=== PATIENT | female | born 1935 | race Caucasian/White ===

== ENCOUNTER 2019-01-21 06:47 | Inpatient (IN) ==
--- NOTE | 2018-12-31 13:02 | PAT Medication Instructions ---
Medication Instructions Date of Service December 31, 2018 Home Medications C,E,zinc,copper [id number] [Ocuvite Adult 50 Plus] 1 cap PO QAM albuterol sulfate 1 puff INHALATION Q6H NEEDED amlodipine 5 mg PO BID apixaban [Eliquis] 5 mg PO BID atorvastatin 20 mg PO QAM bumetanide 1 mg PO BID carvedilol 25 mg PO BID duloxetine 30 mg PO HS empagliflozin [Jardiance] 10 mg PO QAM lisinopril 20 mg PO BID lorazepam 0.5 mg PO HS potassium chloride [Klor-Con M20] 40 meq PO BID ASK your prescriber and surgeon apixaban [Eliquis] 5 mg PO BID (needs to be 72 hours prior to surgery) STOP taking 2 weeks before surgery C,E,zinc,copper [id number] [Ocuvite Adult 50 Plus] 1 cap PO QAM DO NOT take the morning of surgery bumetanide 1 mg PO BID empagliflozin [Jardiance] 10 mg PO QAM lisinopril 20 mg PO BID potassium chloride [Klor-Con M20] 40 meq PO BID Take morning of surgery With a small sip of water, OTHERWISE NOTHING TO EAT OR DRINK AFTER MIDNIGHT: albuterol sulfate 1 puff INHALATION Q6H NEEDED (if needed; please bring to hospital) amlodipine 5 mg PO BID atorvastatin 20 mg PO QAM carvedilol 25 mg PO BID Take evening before surgery albuterol sulfate 1 puff INHALATION Q6H NEEDED (if needed) amlodipine 5 mg PO BID carvedilol 25 mg PO BID duloxetine 30 mg PO HS lisinopril 20 mg PO BID lorazepam 0.5 mg PO HS potassium chloride [Klor-Con M20] 40 meq PO BID Other Notes If you have any questions please call us at [phone] or [phone] or [phone] or [phone]
--- NOTE | 2018-12-31 15:03 | Anesthesiology Consultation ---
Date of Service December 31, 2018 Assessment & Plan (1) Encounter for pre-operative examination: - Seizure after anesthesia in 1974. Suspected to be due to succinylcholine. - No previous anesthesia records available. Chart Review Chart Review: Acceptable Risk for Surgery and Patient seen in Pre Admission Testing Consults Requested medical & cardiac (Dr. Hallman (12/27) & Dr. Fried (01/02) & Dr. Zimmer (01/09) ) Patient was seen by Dr. Ronquillo in pulmonology on 01/09/19 for preoperative evaluation. Per note from that visit, "Cleared for surgery from a pulmonary standpoint". Other than continuing nocturnal O2 and using Duonebs as needed, no recommendations were given. Patient was seen on 01/02/19 for a cardiac risk assessment for planned left TKR. Per note from this visit, "The patient is stable and at optimal cardiac status presently to proceed with the planned surgery. BP and HR are well controlled, denies c/o chest pain or dyspnea and ECG is satisfactory. She is anticoagulated with Eliquis and this may be held fr the procedure 48 hours prior, with surgery scheduled on 01/21/19. Her last dose of Eliquis should be 01/18/19. This should be resumed post operatively as soon as deemed appropriate by Dr. Loaiza, but this will be at the discretion of Dr. Loaiza. Recommend she receive her carvedilol perioperatively." Patient was seen by PCPs office on 12/27 to discuss all of patients comorbidities and review what follow up actions are being taken for each health problem. An addendum was added at the end, however, that states "Pt is medically stable for surgery." Teaching & Discussion Pre-Anesthesia Teaching/Discussion Notes: Instructed NPO after midnight before surgery, except medications with 15 cc of water. Medication instructions provided according to the PAT guidelines. History Surgery Operation Date: 01/21/19 09:15 Proposed Procedures p Left Total Knee Arthroplasty - Usama Loaiza DO Height/Weight Height: 5 ft 9.5 in Weight: 79.7 kg Allergies Allergy/AdvReac Type Severity Reaction Status Date / Time succinylcholine Allergy Severe Seizure Verified 12/30/18 10:40 [From Anectine] azithromycin AdvReac Intermediate SORE MOUTH Verified 12/30/18 11:02 [From Zithromax Z-Florin] doxycycline AdvReac Mild Mouth got Verified 12/31/18 14:49 sore Medications Home Medications Medication Instructions Recorded Confirmed Last Taken C,E,zinc,copper [id number] 1 cap PO QAM 12/30/18 12/30/18 Unknown [Ocuvite Adult 50 Plus] albuterol sulfate 1 puff INHALATION Q6H PRN 12/30/18 12/30/18 Unknown amlodipine 5 mg PO BID 12/30/18 12/30/18 Unknown apixaban [Eliquis] 5 mg PO BID 12/30/18 12/30/18 Unknown atorvastatin 20 mg PO QAM 12/30/18 12/30/18 Unknown bumetanide 1 mg PO BID 12/30/18 12/30/18 Unknown carvedilol 25 mg PO BID 12/30/18 12/30/18 Unknown duloxetine 30 mg PO HS 12/30/18 12/30/18 Unknown empagliflozin [Jardiance] 10 mg PO QAM 12/30/18 12/30/18 Unknown lisinopril 20 mg PO BID 12/30/18 12/30/18 Unknown lorazepam 0.5 mg PO HS 12/30/18 12/30/18 Unknown potassium chloride [Klor-Con M20] 40 meq PO BID 12/30/18 12/30/18 Unknown Past Medical History Medical History Anxiety Asthma controlled Atrial fibrillation Congestive heart failure Depression Diabetes mellitus, type 2 niddm Glaucoma History of anesthesia reaction allergy to anectine causing seizures in ~1974 at [facility]. Hypertension Left leg weakness R/T STROKE On anticoagulant therapy On home oxygen therapy 2lpm via n/c at night Peripheral neuropathy bilateral feet Pulmonary hypertension Stroke July 2017 treated at [facility] in [place] and [facility]. Left arm/Left leg weakness. Follows with PCP. Takes Eliquis daily. Exercise / Class Metabolic Activity III < 4 Walking/Shop/Light housework (Able to scoot self around in her wheelchair. Can walk short distances with walker. Denies CP. Does have some SOB with exertion. ) Past Family History Family History Father Family history of diabetes mellitus Daughter Family history of diabetes mellitus Past Surgical History Surgical History H/O eye surgery for a broken blood vessel in right eye History of appendectomy History of bilateral tubal ligation History of cardiac cath ~2014 at [facility]. No Stents. History of cataract surgery bilateral History of colonoscopy History of esophagogastroduodenoscopy (EGD) History of laparoscopy History of tonsillectomy and adenoidectomy Hx of lumpectomy LEFT S/P JANAE-BSO Past Anesthesia History No Family Hx of Anesthesia Complications Seizures after anesthesia. Suspected to be due to succinylcholine. History of PONV No Hx of PONV and No Hx of Motion Sickness Social History Smoking Status: Never smoker Do You Dip or Chew Tobacco: No Hx Alcohol Use: No Hx Substance Use: No substance use type: does not use Review of Systems Patient denies chest pain, shortness of breath, dyspnea on exertion, reflux, cough, palpitations. +WELLS when trying to walk, otherwise denies +Joint Pain (Knee, hip) +Wheezing (seems to be helped with nebulizer - bromocriptine) +palpitations (with a. fib) Physical Exam Vital Signs BP: 137/71 P: 69 R: 16 T: 97.4 SPO2: 96% on RA ENMT Mouth: + dentures (Full upper and lower dentures) and + edentulous Thyromental Distance: < 3.5 Finger Breadths (3) Mallampati Class: II Neck normal visual inspection; neck extension not limited Respiratory normal respiratory effort Auscultation: lungs clear to auscultation bilaterally Cardiovascular Rate/Rhythm: + abnormal rate and + abnormal rhythm Irregularly irregular heart rate/rhythm (known a. fib) Neurologic moves all extremities Psychiatric Orientation: alert and oriented x 3 Testing Laboratory Results 12/31/18 15:15 12/31/18 15:15 PT 11.5 Seconds (9.0-12.0) 12/31/18 15:15 INR 1.1 (0.9-1.1) 12/31/18 15:15 APTT 29.6 Seconds (21.0-31.0) 12/31/18 15:15 Hemoglobin A1c 6.2 % (4.5-5.6) H 12/31/18 15:15 Urine Color Yellow 12/31/18 15:15 Urine Appearance Clear (Clear) 12/31/18 15:15 Urine pH 6.0 (4.5-7.5) 12/31/18 15:15 Ur Specific [place] 1.025 (1.000-1.030) 12/31/18 15:15 Urine Protein Negative (Negative) 12/31/18 15:15 Urine Glucose (UA) 3+ (Negative) H 12/31/18 15:15 Urine Ketones Negative (Negative) 12/31/18 15:15 Urine Nitrite Negative (Negative) 12/31/18 15:15 Ur Leukocyte Esterase Negative (Negative) 12/31/18 15:15 Urine WBC (Auto) 0 /hpf (0-5) 12/31/18 15:15 Urine RBC (Auto) 0-4 /hpf (0-4) 12/31/18 15:15 U Hyaline Cast (Auto) 0 /lpf (0-5) 12/31/18 15:15 U Epithel Cells (Auto) 5-10 /lpf (0-5) H 12/31/18 15:15 Urine Bacteria (Auto) Negative (Negative) 12/31/18 15:15 Blood Type O Positive 12/31/18 15:15 Antibody Screen NEGATIVE 12/31/18 15:15 12/31/18 15:15 Urine Culture - Final Urine,Clean Catch Alpha strep. not enterococcus Electrocardiogram Date: 01/02/19 Findings: + AFIB @ (57) LAFB PRWP Chest X-Ray Date: 12/31/18 FINDINGS: Atherosclerosis of the aortic arch. Cardiac silhouette enlarged. Lungs are hyperinflated. Heterogeneity lung parenchyma. No focal opacity. Right costophrenic angle blunting possibly trace right pleural effusion or more likely right pleural thickening and/or scarring. No pneumothorax. Degenerative changes of the thoracic spine. Upper abdomen normal. IMPRESSION: 1. Cardiomegaly and emphysema. No convincing evidence of acute cardiopulmonary disease. Cardiac Catheterization Date: 10/31/16 FINDINGS: 1. Rhythm: Atrial fibrillation 2. Hemodynamics: RA V wave is 8, mean is 6. RV 57/-7 with RVEDP of 3, PA 57/19 with mean of 34. PCW V wave is 22, mean is 15. 3. Saturations: PA saturation 68%. Pulse Oximetry 95% 4. Flows: The cardiac output by the Cyrus method is 4.1 liters per minute. Cardiac index 2 liters per minute per m2. Pulmonary vascular resistance is elevated at 4.6 Wood units. IMPRESSION: Moderate pulmonary hypertension with elevated pulmonary vascular resistance consistent with pulmonary parenchymal and pulmonary vascular disease.
--- NOTE | 2018-12-31 15:53 | XRay Report ---
XR chest Pre-admission PA/Lat CLINICAL HISTORY: 83 years-old Female presenting with preoperative assessment, shortness of breath. TECHNIQUE: PA and lateral views of the chest were obtained. COMPARISON: None. FINDINGS: Atherosclerosis of the aortic arch. Cardiac silhouette enlarged. Lungs are hyperinflated. Heterogenei ty lung parenchyma. No focal opacity. Right costophrenic angle blunting possibly trace right pleural effusion or more likely right pleural thickening and/or scarring. No pneumothorax. Degenerative fernando es of the thoracic spine. Upper abdomen normal. IMPRESSION: 1. Cardiomegaly and emphysema. No convincing evidence of acute cardiopulmonary disease. Electronically signed by: Seb Kang M.D. 12/31/2018 3:52 PM
[2018-12-31 16:19] LABS: Basophils # (auto) 0.05 K/uL (0-0.2); Basophils % (auto) 0.8 %; Eosinophils % (auto) 3.2 %; Hematocrit (blood only) 40.7 % (37-47); Hemoglobin 13.3 g/dL (12.0-16.0); Immature Granulocytes # (auto) 0.01 K/uL (0.00-0.02); Immature Granulocytes % (auto) 0.2 %; Lymphocytes # (auto) 1.18 K/uL (1.2-3.4); Mean Corpuscular Hemoglobin 29.7 pg (25-34); Mean Corpuscular Hgb Conc 32.7 g/dL (32-36); Mean Corpuscular Volume 90.8 fL (80-100); Monocytes # (auto) 0.85 K/uL (0.11-0.59); Monocytes % (auto) 13.7 %; Neutrophils # (auto) 3.91 K/uL (1.4-6.5); Neutrophils % (auto) 63.1 %; Platelet Count 186 K/uL (130-400); RDW Coefficient of Variation 13.4 % (11.5-14.5); RDW Standard Deviation 44.1 fL (36.4-46.3); Red Blood Count 4.48 M/uL (4.2-5.4)
[2018-12-31 16:27] LABS: Albumin Level 3.9 gm/dl (3.4-5.0); Calcium 9.2 mg/dl (8.5-10.1); Creatinine Clr Calc Pharmacy 58.6 ml/min; Est GFR (African American) 80.1; Est GFR (Non-African American) 69.1; Potassium 4.1 mmol/L (3.5-5.1)
[2018-12-31 16:34] LABS: INR 1.1 (0.9-1.1); Partial Thromboplastin Ratio 1.1; Partial Thromboplastin Time 29.6 Seconds (21.0-31.0); Prothrombin Time 11.5 Seconds (9.0-12.0)
[2018-12-31 16:37] LABS: Appearance Urine Clear (Clear); Bacteria Urine Automated Negative (Negative); Bilirubin Urine Negative (Negative); Blood Urine Trace (Negative); Cast Urine Automated 0 /lpf (0-5); Color Urine Yellow; Glucose Urine UA 3+ (Negative); Ketones Urine Negative (Negative); Leukocyte Esterase Urine Negative (Negative); Nitrite Urine Negative (Negative); Protein Urine Negative (Negative); RBC Urine Automated 0-4 /hpf (0-4); Specific Gravity Urine 1.025 (1.000-1.030); Urobilinogen Urine Negative (Negative); WBC Urine Automated 0 /hpf (0-5)
[2019-01-01 05:20] LABS: Estimated Average Glucose 131 mg/dl; Hemoglobin A1C 6.2 % (4.5-5.6)
--- NOTE | 2019-01-20 19:35 | History & Physical Report ---
Date of Service January 20, 2019 Assessment & Plan (1) Degenerative joint disease of left knee: I have indicated the patient for left total knee replacement. The risks, benefits and complications of surgery were explained to the patient which include but not limited to infection, acute blood loss, DVT/PE, injury to nerves, vessels, bone, soft tissue, arthrofibrosis, chronic pain, failure of the prosthesis, knee dislocation, leg length discrepancy, need for additional surgery, cardiac and pulmonary events and . The patient wished to proceed with surgery and informed consent was obtained at this time. We will plan for restarting patients home Eliquis post-operatively for DVT prophylaxis. Upon discharge the patient will be discharged home with home health services. Appropriate clearances by PCP, pulm and cardiology were obtained. Patient asymptomatic for UTI. History of Present Illness Chief Complaint: Left knee pain/djd Primary Care Provider: Osmar Hallman The patient is a 83 year old female who presents with complaints of severe left knee pain and DJD. The patient has failed outpatient conservative treatments to this point which included topica NSAIDs, IA corticosteroid and SAWYER injection, bracing, PT and a home walking/exercise program. The patient's pain and limited function have progressed to the point where they severely hinder their activities of daily living and they no longer tolerate exercise programs. They are requesting to proceed with total knee replacement surgery. Allergies Allergy/AdvReac Type Severity Reaction Status Date / Time succinylcholine Allergy Severe Seizure Verified 01/21/19 07:13 [From Anectine] azithromycin AdvReac Intermediate SORE MOUTH Verified 01/21/19 07:13 [From Zithromax Z-Florin] doxycycline AdvReac Mild Mouth got Verified 01/21/19 07:13 sore Home Medications Home Medications Medication Instructions Recorded Confirmed Type C,E,zinc,copper [id number] 1 cap PO QAM 12/30/18 12/30/18 History [Ocuvite Adult 50 Plus] albuterol sulfate 1 puff INHALATION Q6H PRN 12/30/18 12/30/18 History amlodipine 5 mg PO BID 12/30/18 12/30/18 History apixaban [Eliquis] 5 mg PO BID 12/30/18 12/30/18 History atorvastatin 20 mg PO QAM 12/30/18 12/30/18 History bumetanide 1 mg PO BID 12/30/18 12/30/18 History carvedilol 25 mg PO BID 12/30/18 12/30/18 History duloxetine 30 mg PO HS 12/30/18 12/30/18 History empagliflozin [Jardiance] 10 mg PO QAM 12/30/18 12/30/18 History lisinopril 20 mg PO BID 12/30/18 12/30/18 History lorazepam 0.5 mg PO HS 12/30/18 12/30/18 History potassium chloride [Klor-Con M20] 40 meq PO BID 12/30/18 12/30/18 History Past Med/Surg History Medical History Anxiety Asthma controlled Atrial fibrillation Congestive heart failure Depression Diabetes mellitus, type 2 niddm Glaucoma Hypertension Left leg weakness R/T STROKE On anticoagulant therapy On home oxygen therapy 2lpm via n/c at night Peripheral neuropathy bilateral feet Pulmonary hypertension Stroke July 2017 treated at [facility] in [place] and [facility]. Left arm/Left leg weakness. Follows with PCP. Takes Eliquis daily. Surgical History H/O eye surgery for a broken blood vessel in right eye History of anesthesia reaction allergy to anectine causing seizures in ~1974 at [facility]. History of appendectomy History of bilateral tubal ligation History of cardiac cath ~2014 at [facility]. No Stents. History of cataract surgery bilateral History of colonoscopy History of esophagogastroduodenoscopy (EGD) History of laparoscopy History of tonsillectomy and adenoidectomy Hx of lumpectomy LEFT S/P JANAE-BSO Family History Father Family history of diabetes mellitus Daughter Family history of diabetes mellitus Social History Preferred Language: Bermudian Communication Ability: Effective Adjutant General Required: No Beliefs That Will Affect Care: None Current Living Situation: Spouse Other Information That Helps Us Care for You: No Feels Safe at Home: Yes Safety Concerns: Feels Safe At This Time Smoking Status: Never smoker Do You Dip or Chew Tobacco: No ; Second Hand Exposure: No ; Tobacco Cessation Education Requested by Patient: No Hx Alcohol Use: No Hx Substance Use: No Review of Systems Review of Systems: All systems reviewed & are unremarkable except as noted in HPI & below Constitutional: as per Subjective / HPI Physical Exam Physical Exam: RLE NVSI +EHL/FHL/TA/GS SILT grossly, +2 DP pulse, compartments soft NT, limited painful ROM, 0-115 degrees flexion, +crepitus. Constitutional: WD/WN, vitals as above Eyes: PERRL, conjunctivae normal, anicteric sclerae ENMT: external ear and nose normal, oropharynx normal Neck: trachea midline, no thyromegaly Respiratory: normal respiratory effort, lungs clear to auscultation Cardiovascular: RRR, no murmur, no edema Gastrointestinal (Abdomen): normal bowel sounds, soft, nontender, no hepatosplenomegaly Musculoskeletal: no cyanosis or clubbing, extremities motor strength 5/5 Skin: no rashes, warm and dry Neurologic: patellar DTR's 2+ bilat, sensation intact Psychiatric: A+Ox3, euthymic affect Lymphatic: no cervical or axillary lymphadenopathy Results & Data Laboratory Results Multiple views of the knee demonstrates severe tricompartmental DJD with complete loss of the medial and moderate loss patelofemoral joint space. +osteophytes, +sclerosis, +subchondral cysts.
[~2019-01-21 06:47] MED LIST: ACETAMINOPHEN 500 MG TAB PO SCH; BUPIVACAINE 0.5 % 5 MG/1 ML PF 10ML VIAL ONE; CEFAZOLIN 1000MG 1,000 MG/7.5 ML SYR IV SCH; CeleBREX 200 MG CAP PO SCH; FAMOTIDINE 20 MG TAB PO SCH; LR 15ML/HR IV SCH; LR 500ML BOLUS, THEN 15ML/HR IV SCH; METOCLOPRAMIDE HCL 10 MG TABLET PO SCH; ROPIVACAINE 0.5% 5 MG/ML 30 ML VIAL ONE; ROPIVACAINE 0.5% HCL/PF 150 MG, BUPIVACAINE 0.5% MPF 30 ML, EPINEPHrine 30MG/30ML (OR U... INFIL SCH; TRANEXAMIC ACID 1,000 MG **IV Intra-op IV SCH; TRANEXAMIC ACID 1,000 MG **IV Pre-op IV SCH; dexAMETHasone 4 MG TAB PO SCH
[2019-01-21] MEDS ORDERED: MIDAZOLAM HCL 1 MG/ML 2ML VIAL ONE (07:20)
[2019-01-21] MEDS ORDERED: fentaNYL citrate 100 MCG/2 ML VIAL ONE (07:20)
--- NOTE | 2019-01-21 07:24 | History & Physical Bridge Note ---
Date of Service January 21, 2019 History & Physical Bridge Note I have examined the patient, reviewed the History & Physical and in the interval since the performance of the History & Physical I have noted the following changes of clinical significance: no changes noted
[2019-01-21] MEDS ORDERED: ORTHO JOINT ANESTHETIC ONE (07:35)
[2019-01-21] MEDS ORDERED: BACITRACIN INJ 50,000 UNIT VIAL ONE (07:35)
[2019-01-21] MEDS ORDERED: ATROPINE SULFATE 0.1 MG/ML 10ML SYR IV PRN (08:42)
[2019-01-21] MEDS ORDERED: ONDANSETRON INJ 2 MG/ML 2 ML VIAL IV PRN ×2 (08:42→12:18)
[2019-01-21] MEDS ORDERED: fentaNYL citrate 100 MCG/2 ML VIAL IV PRN (08:42)
[2019-01-21] MEDS ORDERED: ePHEDrine sulfate 50 MG/ML AMP IV PRN (08:42)
[2019-01-21] MEDS ORDERED: LIDOCAINE HCL 2% 2 ML VIAL/AMP(20MG/ML) INFIL ONE (10:41)
[2019-01-21] MEDS ORDERED: PROPOFOL IV EMULSION 10 MG/ML 20 ML VIAL IV ONE (10:41)
--- NOTE | 2019-01-21 10:43 | Post Operative Brief Note ---
Immediate Post Op Note v1 Date of Surgery January 21, 2019 Pre & Post Diagnosis Operation Date: 01/21/19 09:15 Pre-Op Diagnosis: Left Knee Degenerative Joint Disease Post-Op Diagnosis: Left Knee Degenerative Joint Disease Procedure Operation Date: 01/21/19 09:15 Actual Procedures p Left Total Knee Arthroplasty(Left) - Usama Loaiza DO Surgeon Usama Loaiza DO Lubrication Equipment Servicer Tarik Rdz Estimated Blood Loss 100 Findings Consistent with Post-Op Diagnosis Fluids 1000 cc LR Specimens proximal tibia and distal femur bone cuts Drains Hemovac Drain (10fr dual) Anesthesia Type Spinal MAC Complications none Disposition Disposition: Recovery Room Overlapping Procedure I was present for: the critical portions of procedure. I was immediately available: during the entire case. Back up surgeon: was not required during procedure.
--- NOTE | 2019-01-21 10:55 | Operative Report ---
Post Operative Report Pre & Post Diagnosis Operation Date: 01/21/19 09:15 Pre-Op Diagnosis: Left Knee Degenerative Joint Disease Post-Op Diagnosis: Left Knee Degenerative Joint Disease Procedure Operation Date: 01/21/19 09:15 Actual Procedures p Left Total Knee Arthroplasty(Left) - Usama Loaiza DO Surgeon Usama Loaiza DO Breaker Machine Operator Tarik Rdz Estimated Blood Loss 100 Findings Consistent with Post-Op Diagnosis Specimens Proximal tibia and distal femur bone fragments Drains Hemovac drain x2 Anesthesia Type Spinal MAC Complications none Disposition Disposition: Recovery Room Indications The patient is a 83-year-old femur presents with long history of severe left knee tricompartmental DJD and failed outpatient conservative treatments including NSAIDs, bracing, injections and home walking/exercise program. The patient's symptoms have progressed to the point where it has been difficult to perform normal activities of daily living. I have indicated the patient for a left total knee arthroplasty, the risks and benefits and complications of the procedure include but are not limited to infection bleeding damage to bone, nerves, vessels, surrounding soft tissue, blood clots, loss of function, leg length discrepancy, dislocation, failure of the components, need for additional surgery and . The patient wished to proceed with surgery at this time and informed consent was obtained. Appropriate clearances were obtained. Description of Procedure COMPONENTS USED: Quin persona knee system: Femur size 8 standard, Tibia size F, 30 mm stem, tibial articulating surface 14 CPS, Patella 32 mm Following induction of spinal anesthesia, a tourniquet was applied to the proximal aspect of the thigh and the patient's left leg was prepped and draped in the usual sterile manner. A timeout was performed, patient identified and site joaquin confirmed. Appropriate pre-operative IV antibiotics were given. The limb was exsanguinated with an Esmarch bandage and tourniquet was inflated to 300 mmHg. A longitudinal midline incision was made over the anterior knee. Subcutaneous tissue was sharply dissected down to fascia. Electrocautery was used for hemostasis. Next a parapatellar arthrotomy was performed. Patella was everted and the knee was flexed. A Back retractor was used to expose the synovium above on the anterior aspect of the femur and removed down to bone. Next, the anterior fat pad was removed to aid in visualization. The medial face of the tibia was cleared of soft tissue first with a Bovie and a [place] elevator. This tissue was retracted posteriorly using a blunt Hohmann. Next, the extra-medullary tibial cutting guide was placed to the anterior aspect of the tibia. The tibia resection level was set taking 2mm from the defective tibial condyle. Resection depth was once again confirmed with lópez wing. The medial and lateral collateral ligament was protected with two Hohmann retrac tors. The tibia guide was removed and proximal tibial bone fragment removed utilizing straight osteotome, electrocautery and Lisa. Next, the distal femur intramedullary canal was accessed utilizing the step drill. The intramedullary distal femur cutting guide was placed into the canal and pinned into place. The distal femur was cut on the +0 5 degree setting. Next the cutting guide was removed and the femur was sized. Care was taken to ensure appropriate consumer credit counselor all rotation and 3 degree holes were drilled. A size 8 4-in-1 cutting block was placed on the distal end of the femur and secured into place with two short headed screws. Two bent Hohmann retractors were placed to protect the medial and lateral collateral ligaments. The oscillating saw was used to cut anterior, posterior, anterior chamfer and posterior chamfer. The four and one cutting block was removed and bone fragments excised. Laminar saw operator was placed laterally and the ACL and PCL were removed followed by the medial meniscus and posterior medial osteophytes. Aquamantys was utilized for any posterior medial bleeders and Orthomix injected into the posterior medial capsule. A laminar saw operator was then placed in the medial compartment and the lateral meniscus and posterior osteophytes were removed. Aquamantys was utilized for any posterior lateral bleeders and Orthomix injected into the posterior lateral capsule. Next, drop lety and spacer block were placed with the leg in flexion and extension to assess alignment and flexion/extension gaps. Next, the proximal tibia was assessed and two bent Hohmans were placed medial and lateral to aid in visualization. The appropriate tibia size and rotation was selected and a size F tibial plate was pinned into place with appropriate rotation. Preparation of the tibia was completed utilizing the matching tibial drill to accommodate stubby stem and broach. I then turned my attention back to the distal femur in a trial femoral component was impacted into place. Appropriate femoral width was assessed and selected. Next the femur PS box cut guide was placed and cut made with the reciprocal saw and the PS box provisional placed. A trial size 12 PS tibia articular tray was placed and varus-valgus balance assessed in 0 degrees of extension and 30, 60 and 90 degrees of flexion. A final tibial articular surface size 14 CPS was chosen. Assess was gained to the patella and caliper utilized to measure width. The patella reamer was utilized and remaining bone removed with oscillating saw. A size 32 mm patella button was selected and the patella pegs drilled. Trial patella button was placed and tracking was assessed. The knee was found to be well balanced, well aligned with excellent patella tracking. The trials were removed and final components were obtained and assembled. The knee was irrigated copiously with sterile saline solution mixed with bacitracin. Access to the proximal tibia was once again obtained utilizing to the Hohmans and the proximal tibia and distal femur were dried with lap sponges. The final components were cemented into place and all excess cement was removed. A trial tibial articular surface was placed while cemented hardened. Knee stability was once again assessed and the final component inserted. A Betadine soak was performed. After 3 minutes, the hip was once more irrigated with copious sterile saline solution with bacitracin. The knee was injected with the remaining Orthomix which includes a combination of Ropivicaine 0.5% 150mg, Bupivicaine 0.5%/Epinephrine 1:200,000 30ml, Toradol 30mg, Dexamethasone 4mg, Ketamine 10mg, Clonidine 100mcg and NSS 30ml solution. The capsulotomy was closed with #1 Vicryl followed by subcutaneous closure with 2-0 Vicryl suture and a 3-0 V-lock suture. Skin closure was performed using Prineo dressing followed by Neri, 4 x 4s and laurita wrap. Tourniquet was deflated at 90 minutes. The patient tolerated the procedure well and was taken to the PACU in stable condition. Due to the complex nature of the procedure, the entire surgery was performed with the operational assistance of Tarik Suarez PA-C. The bindery assistant, under direct supervision, was involved in the actual performance of all aspects of the surgical procedure including patient positioning, hemostasis, tissue retraction, instrument management and wound closure. I attest to the content of the Intraoperative Record and any orders documented therein. Any exceptions are noted below.
--- NOTE | 2019-01-21 11:46 | XRay Report ---
LEFT KNEE 2 VIEWS History: Left total knee arthroplasty. Degenerative arthritis. Postop. FINDINGS: The patient is status post a left total knee arthroplasty. The hardware is intact. No fract ure or dislocation. Surgical drains are in place. IMPRESSION: Left total knee arthroplasty. No evidence for hardware complication. Electronically signed by: James Trejo M.D. 01/21/2019 11:45 AM
--- NOTE | 2019-01-21 11:48 | Anesthesiology Progress Note ---
Date of Service January 21, 2019 Anesthesia Post Procedure Vital Signs Vital Signs: Temp Pulse Pulse Resp BP Pulse Ox 01/21/19 11:44 47 L 16 114/57 L 96 01/21/19 11:30 49 L 17 91/48 L 99 01/21/19 11:24 97.2 F L 49 L 16 87/47 L 93 01/21/19 07:23 97.7 F 54 L 20 131/65 94 Transfer of Care Handoff Completed per policy Notes Mental Status: alert / awake / arousable and participated in evaluation Patient Amnestic to Procedure: Yes Nausea / Vomiting: adequately controlled Pain: adequately controlled Airway Patency, RR, SpO2: stable & adequate BP & HR: stable & adequate Hydration State: stable & adequate Neuraxial Anesthesia: was administered and sensory block is resolving Anesthetic Complications: no major complications apparent and Pt Satisfied with anesthetic care
[2019-01-21] MEDS ORDERED: NALOXONE HCL 0.4 MG/1 ML VIAL/CARP IV PRN (12:18)
[2019-01-21] MEDS ORDERED: OXYCODONE HCL IR 5 MG TAB (IMMEDIATE RELEASE) PO PRN (12:18)
[2019-01-21] MEDS ORDERED: MAGNESIUM HYDROXIDE SUSP 30 ML UDC PO PRN (12:18)
[2019-01-21] MEDS ORDERED: ALBUTEROL HFA 8 GM INHALER INH PRN (12:18)
[2019-01-21] MEDS ORDERED: BISACODYL 10 MG SUPP PR PRN (12:18)
[2019-01-21] MEDS ORDERED: METOCLOPRAMIDE HCL INJ 5 MG/ML 2 ML VIAL IV PRN (12:18)
[2019-01-21] MEDS ORDERED: HYDROmorphone INJ 0.5 MG/0.5 ML SYR IV PRN (12:18)
[2019-01-21] MEDS: ACETAMINOPHEN 500 MG TAB PO SCH ×2 (14:11→21:09)
--- NOTE | 2019-01-21 14:47 | Hospitalist Consultation ---
Date of Consultation January 21, 2019 Assessment & Plan (1) Post-operative state: S/P TKA / Pain control, DVT prophylaxis per primary Monitor for acute blood loss - CBC am (2) Hypertension: Continue amlodipine, carvedilol, hold lisinopril POD 1 to avoid post op hypotension (3) Atrial fibrillation: Continue Coreg, resume apixaban when ok with surgery (4) Congestive heart failure: Chronic diastolic HF continue carvedilol, bumetanide, hold lisinopril as above Caution with IVF (5) Diabetes mellitus, type 2: hold Jardiance DMII diet, bsgs ac & hs, ss (6) Pulmonary hypertension: Wears 2L at home continue bumetanide (7) Depression: continue duloxetine (8) Peripheral neuropathy: continue duloxetine (9) Hyperlipemia: continue atrovatatin (10) COPD (chronic obstructive pulmonary disease): continue home ipratropium Supervising Physician Co-Signing Physician Notes I supervised Di Villagran NP on this patient's care. I examined the patient today independently of her. I discussed the plan of care with her with the plan being as written in her note except for any following changes/exceptions: None. History of Present Illness Attending Physician: Usama Loaiza DO History of Present Illness Ms. Lenz is post op TKA today. She has no complaints Pmhx: htn, A.fib on Eliquis, DMII, CVA, diastolic CHF, pulm htn, cirrhosis, COPD, GERD, hld, Social: never smoker, no alcohol, Family: mother had atrial fibrillation Allergies Allergy/AdvReac Type Severity Reaction Status Date / Time succinylcholine Allergy Severe Seizure Verified 01/21/19 07:13 [From Anectine] Iodinated Contrast- Oral and Allergy Hives Verified 01/21/19 07:34 IV Dye azithromycin AdvReac Intermediate SORE MOUTH Verified 01/21/19 07:13 [From Zithromax Z-Florin] doxycycline AdvReac Mild Mouth got Verified 01/21/19 07:13 sore Home Medications Home Medications Medication Instructions Recorded Confirmed Type C,E,zinc,copper [id number] 1 cap PO QAM 12/30/18 01/21/19 History [Ocuvite Adult 50 Plus] albuterol sulfate 1 puff INHALATION Q6H PRN 12/30/18 01/21/19 History amlodipine 5 mg PO BID 12/30/18 01/21/19 History apixaban [Eliquis] 5 mg PO BID 12/30/18 01/21/19 History atorvastatin 20 mg PO QAM 12/30/18 01/21/19 History bumetanide 1 mg PO BID 12/30/18 01/21/19 History carvedilol 25 mg PO BID 12/30/18 01/21/19 History duloxetine 30 mg PO HS 12/30/18 01/21/19 History empagliflozin [Jardiance] 10 mg PO QAM 12/30/18 01/21/19 History lisinopril 20 mg PO BID 12/30/18 01/21/19 History lorazepam 0.5 mg PO HS 12/30/18 01/21/19 History potassium chloride [Klor-Con M20] 40 meq PO BID 12/30/18 01/21/19 History Oxygen Home 01/21/19 01/21/19 History ipratropium bromide 0.5 mg INHALATION BID 01/21/19 01/21/19 History travoprost [Travatan Z] 1 drp OPHTHALMIC (EYE) PM 01/21/19 01/21/19 History Patient History Family History Father Family history of diabetes mellitus Daughter Family history of diabetes mellitus Social History Preferred Language: Malay Communication Ability: Effective Finishing Machine Operator Automatic Required: No Beliefs That Will Affect Care: None Current Living Situation: Spouse Other Information That Helps Us Care for You: No Feels Safe at Home: Yes Safety Concerns: Feels Safe At This Time Smoking Status: Never smoker Do You Dip or Chew Tobacco: No ; Second Hand Exposure: No ; Tobacco Cessation Education Requested by Patient: No Hx Alcohol Use: No Hx Substance Use: No Review of Systems Review of Systems: All systems reviewed & are unremarkable except as noted in HPI & below Physical Exam Physical Exam: General: no distress Eyes: normal inspection, PERLL Respiratory: chest non tender, clear to auscultation, normal breath sounds, no respiratory distress, no accessory muscle use Cardiac: regular rate and rhythm, no rub or gallop, systolic murmur, no edema, no jvd GI/: active bowel sounds, no abd pain or tenderness, soft, non distended Extremities: normal range of motion, normal strength, non tender Neuro/Psych: alert and oriented x 3, normal mood and affect Skin: normal color, dry Results & Data Vital Signs (Past 12 Hours) Vital Signs Temp Pulse Pulse Pulse Resp BP Pulse Ox 01/21/19 14:00 65 18 110/63 98 01/21/19 13:01 65 16 120/70 99 01/21/19 12:18 62 16 123/68 98 01/21/19 12:05 36.6 C 62 14 111/57 L 97 01/21/19 11:52 37.6 C H 51 L 18 111/75 95 01/21/19 11:44 47 L 16 114/57 L 96 01/21/19 11:30 49 L 17 91/48 L 99 01/21/19 11:24 36.2 C L 49 L 16 87/47 L 93 01/21/19 07:23 36.5 C 54 L 20 131/65 94 PG Care Time/CCT Total # of Minutes Spent Total Time Spent with Patient: Total time spent is greater than 50% in coordination of care (as documented) at patient's floor/unit and/or counseling patient:
[2019-01-21] MEDS ORDERED: DEXTROSE 50% 50 ML SYRINGE IV PRN (15:15)
[2019-01-21] MEDS ORDERED: CARBOHYDRATES FOR HYPOGLYCEMIA PO PRN (15:15)
[2019-01-21] MEDS ORDERED: GLUCOSE 40% GEL 15 GM TUBE PO PRN (15:15)
[2019-01-21] MEDS ORDERED: GLUCOSE 10 TABS/TUBE PO PRN (15:15)
[2019-01-21] MEDS ORDERED: GLUCAGON FOR INJ 1 MG VIAL IM PRN (15:15)
[2019-01-21] MEDS: SODIUM CHLORIDE 0.9% 1000ML 1,000 ML IV SCH (15:30)
[2019-01-21] MEDS: CEFAZOLIN 1000MG 1,000 MG/7.5 ML SYR IV SCH (16:18)
[2019-01-21] MEDS: INSULIN ASPART 100 UNITS/ML 3 ML PEN SC SCH ×2 (18:26→21:05)
[2019-01-21] MEDS: IPRATROPIUM BROMIDE NEB SOLN 0.02% 2.5 ML VIAL INH SCH (20:01)
--- NOTE | 2019-01-21 20:29 | Orthopedic Progress Note ---
Date of Service January 21, 2019 Assessment & Plan (1) Degenerative joint disease of left knee: s/p L TKA -Ancef x 24 -DVT ppx: SCDs, TEDs, restart patients home eliquis -WBAT LLE -PT/OT -PO XR demonstrates well aligned well fixed orthopedic prothesis without fracture/dislocation. -am labs -DC planning Subjective Post Operative Progress Note Patient seen sitting up in bed, comfortable, denies complaints, pain well controlled, no acute issues. Review of Systems Review of Systems: All systems reviewed & are unremarkable except as noted in HPI & below Constitutional: as per Subjective / HPI Physical Exam Physical Exam: LLE NVSI +EHL/FHL/TA/GS SILT grossly, +2 DP pulse, compartments soft NT, dressing cdi. Constitutional: WD/WN, vitals as above Results & Data Vital Signs (Past 12 Hours) Vital Signs Temp Pulse Pulse Resp BP Pulse Ox 01/21/19 20:16 36.5 C 66 16 128/67 99 01/21/19 20:04 66 16 96 01/21/19 15:09 36.4 C L 58 L 16 110/62 99 01/21/19 14:00 65 18 110/63 98 01/21/19 13:01 65 16 120/70 99 01/21/19 12:18 62 16 123/68 98 01/21/19 12:05 36.6 C 62 14 111/57 L 97 01/21/19 11:52 37.6 C H 51 L 18 111/75 95 01/21/19 11:44 47 L 16 114/57 L 96 01/21/19 11:30 49 L 17 91/48 L 99 01/21/19 11:24 36.2 C L 49 L 16 87/47 L 93
[2019-01-21] MEDS: BUMETANIDE 1 MG TAB PO SCH (20:50)
[2019-01-21] MEDS: TRAVOPROST Z 0.004% OPH SOLN 2.5 ML BTL OP SCH (20:50)
[2019-01-21] MEDS: AMLODIPINE BESYLATE 5 MG TAB PO SCH (20:50)
[2019-01-21] MEDS: POTASSIUM CHLORIDE 20 MEQ TABCR PO SCH (20:50)
[2019-01-21] MEDS: SENNA 8.6 MG TAB PO SCH (20:50)
[2019-01-21] MEDS: LORazepam 0.5 MG TAB PO SCH (20:51)
[2019-01-21] MEDS: DULOXETINE HCL 30 MG CAP PO SCH (20:51)
[2019-01-21] MEDS: DOCUSATE SODIUM 100 MG CAP PO SCH (20:51)
[2019-01-21] MEDS: CARVEDILOL 25 MG TAB PO SCH (20:51)
[2019-01-22] MEDS: SODIUM CHLORIDE 0.9% 1000ML 1,000 ML IV SCH (00:33)
[2019-01-22] MEDS: CEFAZOLIN 1000MG 1,000 MG/7.5 ML SYR IV SCH (00:33)
[2019-01-22] MEDS: ACETAMINOPHEN 500 MG TAB PO SCH ×3 (05:12→21:27)
[2019-01-22 06:38] LABS: Hematocrit (blood only) 34.3 % (37-47); Hemoglobin 11.3 g/dL (12.0-16.0); Mean Corpuscular Hemoglobin 29.9 pg (25-34); Mean Corpuscular Hgb Conc 32.9 g/dL (32-36); Mean Corpuscular Volume 90.7 fL (80-100); Mean Platelet Volume 10.5 fL (7.4-10.4); Platelet Count 127 K/uL (130-400); RDW Coefficient of Variation 13.5 % (11.5-14.5); RDW Standard Deviation 44.5 fL (36.4-46.3); Red Blood Count 3.78 M/uL (4.2-5.4); White Blood Count 11.92 K/uL (4.8-10.8)
[2019-01-22 07:14] LABS: BUN Creatinine Ratio 18.9 (10-20); Creatinine Clr Calc Pharmacy 47.9 ml/min; Est GFR (African American) 62.7; Est GFR (Non-African American) 54.1; Potassium 3.9 mmol/L (3.5-5.1)
[2019-01-22] MEDS: IPRATROPIUM BROMIDE NEB SOLN 0.02% 2.5 ML VIAL INH SCH ×2 (07:21→19:17)
--- NOTE | 2019-01-22 07:56 | Orthopedic Progress Note ---
Date of Service January 22, 2019 Assessment & Plan (1) Degenerative joint disease of left knee: s/p L TKA POD#1 -Ancef x 24, then dc -DVT ppx: SCDs, TEDs, restart patients home eliquis -WBAT LLE -PT/OT -am labs hgb 11.3 -DC planning - HH services when dc'd. Supervising Physician Co-Signing Physician Notes I have personally seen and examined the patient, agree with above assessment and plan. Subjective POD 1 s/p Left TKA Pt sitting up in bed doing her bed exercises. Doing heel props presently without difficulty or overt pain. She states that her pain is controlled currently. Denies SOB,CP,LH. Review of Systems Review of Systems: All systems reviewed & are unremarkable except as noted in HPI & below Constitutional: as per Subjective / HPI Physical Exam Physical Exam: Dressings are C/D/I. Calves are soft,NT. NV intact. Toes are mobile. HV drainage was 75cc overnight. Able to do SLR without difficulty. LLE NVSI +EHL/FHL/TA/GS SILT grossly, +2 DP pulse, compartments soft NT, dressing cdi. Constitutional: WD/WN, vitals as above Results & Data Vital Signs (Past 12 Hours) Vital Signs Temp Pulse Resp BP Pulse Ox 01/22/19 07:23 77 16 97 01/22/19 07:00 36.7 C 66 16 128/66 91 01/22/19 04:00 37.3 C 66 16 123/70 95 01/21/19 23:37 36.8 C 70 16 115/65 97 01/21/19 20:47 36.7 C 68 16 119/69 96 01/21/19 20:16 36.5 C 66 16 128/67 99 01/21/19 20:04 66 16 96 Laboratory Results Laboratory Results WBC 11.92 K/uL (4.8-10.8) H 01/22/19 06:24 RBC 3.78 M/uL (4.2-5.4) L 01/22/19 06:24 Hgb 11.3 g/dL (12.0-16.0) L 01/22/19 06:24 Hct 34.3 % (37-47) L 01/22/19 06:24 MCV 90.7 fL (80-100) 01/22/19 06:24 MCH 29.9 pg (25-34) 01/22/19 06:24 MCHC 32.9 g/dL (32-36) 01/22/19 06:24 RDW Std Deviation 44.5 fL (36.4-46.3) 01/22/19 06:24 RDW Coeff of Fiorella 13.5 % (11.5-14.5) 01/22/19 06:24 Plt Count 127 K/uL (130-400) L 01/22/19 06:24 MPV 10.5 fL (7.4-10.4) H 01/22/19 06:24 Immature Gran % (Auto) 0.2 % 12/31/18 15:15 Neut % (Auto) 63.1 % 12/31/18 15:15 Lymph % (Auto) 19.0 % 12/31/18 15:15 Oliver % (Auto) 13.7 % 12/31/18 15:15 Eos % (Auto) 3.2 % 12/31/18 15:15 Baso % (Auto) 0.8 % 12/31/18 15:15 Immature Gran # (Auto) 0.01 K/uL (0.00-0.02) 12/31/18 15:15 Neut # (Auto) 3.91 K/uL (1.4-6.5) 12/31/18 15:15 Lymph # (Auto) 1.18 K/uL (1.2-3.4) L 12/31/18 15:15 Oliver # (Auto) 0.85 K/uL (0.11-0.59) H 12/31/18 15:15 Eos # (Auto) 0.20 K/uL (0-0.5) 12/31/18 15:15 Baso # (Auto) 0.05 K/uL (0-0.2) 12/31/18 15:15 PT 11.5 Seconds (9.0-12.0) 12/31/18 15:15 INR 1.1 (0.9-1.1) 12/31/18 15:15 APTT 29.6 Seconds (21.0-31.0) 12/31/18 15:15 PTT Ratio 1.1 12/31/18 15:15 Sodium 143 mmol/L (136-145) 01/22/19 06:24 Potassium 3.9 mmol/L (3.5-5.1) 01/22/19 06:24 Chloride 111 mmol/L (98-107) H 01/22/19 06:24 Carbon Dioxide 25 mmol/L (21-32) 01/22/19 06:24 Anion Gap 7.0 (3-11) 01/22/19 06:24 BUN 18 mg/dl (7-18) 01/22/19 06:24 Creatinine 0.98 mg/dl (0.6-1.2) 01/22/19 06:24 Est Cr Clr Drug Dosing 47.9 ml/min 01/22/19 06:24 Est GFR ( Amer) 62.7 01/22/19 06:24 Est GFR (Non-Af Amer) 54.1 01/22/19 06:24 BUN/Creatinine Ratio 18.9 (10-20) 01/22/19 06:24 Glucose 186 mg/dl (70-99) H 01/22/19 06:24 POC Glucose 231 (70-99) H 01/21/19 20:35 Estimat Average Glucose 131 mg/dl 12/31/18 15:15 Hemoglobin A1c 6.2 % (4.5-5.6) H 12/31/18 15:15 Calcium 8.0 mg/dl (8.5-10.1) L 01/22/19 06:24 Albumin 3.9 gm/dl (3.4-5.0) 12/31/18 15:15 Urine Color Yellow 12/31/18 15:15 Urine Appearance Clear (Clear) 12/31/18 15:15 Urine pH 6.0 (4.5-7.5) 12/31/18 15:15 Ur Specific [place] 1.025 (1.000-1.030) 12/31/18 15:15 Urine Protein Negative (Negative) 12/31/18 15:15 Urine Glucose (UA) 3+ (Negative) H 12/31/18 15:15 Urine Ketones Negative (Negative) 12/31/18 15:15 Urine Blood Trace (Negative) H 12/31/18 15:15 Urine Nitrite Negative (Negative) 12/31/18 15:15 Urine Bilirubin Negative (Negative) 12/31/18 15:15 Urine Urobilinogen Negative (Negative) 12/31/18 15:15 Ur Leukocyte Esterase Negative (Negative) 12/31/18 15:15 Urine WBC (Auto) 0 /hpf (0-5) 12/31/18 15:15 Urine RBC (Auto) 0-4 /hpf (0-4) 12/31/18 15:15 U Hyaline Cast (Auto) 0 /lpf (0-5) 12/31/18 15:15 U Epithel Cells (Auto) 5-10 /lpf (0-5) H 12/31/18 15:15 Urine Bacteria (Auto) Negative (Negative) 12/31/18 15:15 Blood Type O Positive 12/31/18 15:15 Antibody Screen NEGATIVE 12/31/18 15:15
[2019-01-22] MEDS: APIXABAN 5 MG TABLET PO SCH ×2 (08:13→20:31)
[2019-01-22] MEDS: ATORVASTATIN 20 MG TAB PO SCH (08:13)
[2019-01-22] MEDS: AMLODIPINE BESYLATE 5 MG TAB PO SCH ×2 (08:13→20:31)
[2019-01-22] MEDS: DOCUSATE SODIUM 100 MG CAP PO SCH ×2 (08:13→20:31)
[2019-01-22] MEDS: POTASSIUM CHLORIDE 20 MEQ TABCR PO SCH ×2 (08:13→20:32)
[2019-01-22] MEDS: CARVEDILOL 25 MG TAB PO SCH ×2 (08:13→20:31)
[2019-01-22] MEDS: MULTIVITAMIN TAB PO SCH (08:14)
[2019-01-22] MEDS: BUMETANIDE 1 MG TAB PO SCH ×2 (08:14→20:31)
[2019-01-22] MEDS ORDERED: PHARMACY GLYCEMIC MGMT CONSULT PRN (08:39)
--- NOTE | 2019-01-22 09:14 | Pharmacy Report ---
Glycemic Control Consultation - Date of Service January 22, 2019 - Scope Scope: Glycemic Pharmacist consulted for glycemic control and to write orders per [facility] inpatient glycemic control protocol - Objective Weight: 78 kg Acckeyecks BSG (last 24hrs): 01/21/19 01/21/19 01/21/19 11:27 12:31 17:05 Glucose POC Glucose 128 H 129 H 178 H 01/21/19 01/22/19 01/22/19 20:35 06:24 08:25 Glucose 186 H POC Glucose 231 H 194 H Laboratory Data (last 24hrs): 01/22/19 06:24 Potassium 3.9 Carbon Dioxide 25 Anion Gap 7.0 Creatinine 0.98 Est Cr Clr Drug Dosing 47.9 HbA1c: Hemoglobin A1c 6.2 % (4.5-5.6) H 12/31/18 15:15 - Recent Pertinent Medications Outpatient Anti-diabetic Regimen: * Empagliflozin (Jardiance) 10mg PO QAM The patient is currently receiving: * Basal insulin: None * Correctional Insulin: Novolog Correction per scale ACHS Goal Range: Low 100 mg/dL - High 140 mg/dL Correction Factor: 25 mg/dL/unit * Prandial insulin: None * Oral Agents: On hold for admission - Assessment & Plan Assessment & Plan: ASSESSMENT: * 83yo T2DM female with adequate outpatient control per recent A1c. * Pt is maintained on oral antidiabetic agents as an outpatient * Oral agents are not recommended for inpatient use d/t drug interactions, changing PO intake, and difficulty titrating for acute hyper/hypoglycemia. ADA recommends re-initiating outpatient oral agents 1-2 days prior to discharge if/when appropriate if they were held on admission. * Will hold oral agents for admission and utilize SQ basal bolus insulin regimen which is the recommended regimen for inpatient glycemic control. * Will initiate weight based insulin dosing for insulin may patient and titrate based on BSG trends. * Pt was already ordered correctional insulin but is missing carb coverage and basal insulin. PLAN FOR INPATIENT GLYCEMIC CONTROL: * Hold outpatient oral diabetes medications * May resume at discharge per well controlled A1c * Basal insulin * Lantus 16 units (~0.2 units/kg) SQ Daily * Bolus insulin: add Carb coverage * NovoLog per scale ACHS or Q6hrs while NPO * Goal Range: Low 100 mg/dL - High 140 mg/dL * Correction Factor: 25 mg/dL/unit * Nutritional / Prandial insulin per carb ratio of 1 unit per 10 grams CHO consumed * Please note that the plan above was derived based on current level of insulin resistance and hospital stress. These recommendations are appropriate for inpatient admission only. Plan of care upon discharge will need to be reassessed to avoid potential outpatient hypo/hyperglycemia. Thank you.
[2019-01-22] MEDS: INSULIN GLARGINE SOLOSTAR 100 UNITS/ML 3 ML PEN SC SCH (09:21)
[2019-01-22] MEDS: INSULIN ASPART 100 UNITS/ML 3 ML PEN SC SCH ×4 (09:21→21:27)
--- NOTE | 2019-01-22 12:08 | Hospitalist Progress Note ---
Date of Service January 22, 2019 Assessment & Plan (1) Post-operative state: S/P TKA / Pain control, DVT prophylaxis per primary Monitor for acute blood loss - hgb decreased 2g to 11 (2) Hypertension: Continue amlodipine, carvedilol, resume lisinopril (3) Atrial fibrillation: Continue Coreg, resume apixaban when ok with surgery (4) Congestive heart failure: Chronic diastolic HF continue carvedilol, bumetanide, resume lisinopril as above Caution with IVF (5) Diabetes mellitus, type 2: hold Jardiance DMII diet, bsgs ac & hs, ss glycemic pharmacist consult (6) Pulmonary hypertension: Wears 2L at home continue bumetanide (7) Depression: continue duloxetine (8) Peripheral neuropathy: continue duloxetine (9) Hyperlipemia: continue atrovastatin (10) COPD (chronic obstructive pulmonary disease): continue home ipratropium Medicine will sign off at this time. Please call with any questions or concerns. Thank you Subjective Ms. Lenz has no complaints. Pain is controlled. Review of Systems Review of Systems: All systems reviewed & are unremarkable except as noted in HPI & below Physical Exam Physical Exam: General: no distress Eyes: normal inspection, PERLL Respiratory: chest non tender, clear to auscultation, normal breath sounds, no respiratory distress, no accessory muscle use Cardiac: regular rate and rhythm, no rub or gallop, no murmur, no edema, no jvd GI/: active bowel sounds, no abd pain or tenderness, soft, non distended Extremities: normal range of motion, normal strength, non tender Neuro/Psych: alert and oriented x 3, normal mood and affect Skin: normal color, dry Results & Data Vital Signs (Past 12 Hours) Vital Signs Temp Pulse Resp BP Pulse Ox 01/22/19 07:23 77 16 97 01/22/19 07:00 36.7 C 66 16 128/66 91 01/22/19 04:00 37.3 C 66 16 123/70 95 PG Care Time/CCT Total # of Minutes Spent Total Time Spent with Patient: Total time spent is greater than 50% in coordination of care (as documented) at patient's floor/unit and/or counseling patient:
[2019-01-22] MEDS: TRAVOPROST Z 0.004% OPH SOLN 2.5 ML BTL OP SCH (20:31)
[2019-01-22] MEDS: LISINOPRIL 20 MG TAB PO SCH (20:31)
[2019-01-22] MEDS: SENNA 8.6 MG TAB PO SCH (20:31)
[2019-01-22] MEDS: LORazepam 0.5 MG TAB PO SCH (20:32)
[2019-01-22] MEDS: DULOXETINE HCL 30 MG CAP PO SCH (20:33)
[2019-01-23] MEDS: ACETAMINOPHEN 500 MG TAB PO SCH ×2 (05:42→14:43)
[2019-01-23 06:46] VITALS: TEMP 98.6
[2019-01-23] MEDS: IPRATROPIUM BROMIDE NEB SOLN 0.02% 2.5 ML VIAL INH SCH (07:10)
[2019-01-23 07:35] LABS: Hematocrit (blood only) 33.4 % (37-47); Hemoglobin 10.9 g/dL (12.0-16.0); Mean Corpuscular Hemoglobin 29.5 pg (25-34); Mean Corpuscular Hgb Conc 32.6 g/dL (32-36); Mean Corpuscular Volume 90.3 fL (80-100); Mean Platelet Volume 10.6 fL (7.4-10.4); Platelet Count 157 K/uL (130-400); RDW Coefficient of Variation 13.9 % (11.5-14.5); RDW Standard Deviation 45.5 fL (36.4-46.3); White Blood Count 11.74 K/uL (4.8-10.8)
[2019-01-23] MEDS: BUMETANIDE 1 MG TAB PO SCH (07:49)
[2019-01-23] MEDS: ATORVASTATIN 20 MG TAB PO SCH (07:49)
[2019-01-23] MEDS: AMLODIPINE BESYLATE 5 MG TAB PO SCH (07:49)
[2019-01-23] MEDS: CARVEDILOL 25 MG TAB PO SCH (07:50)
[2019-01-23] MEDS: LISINOPRIL 20 MG TAB PO SCH (07:50)
[2019-01-23] MEDS: POTASSIUM CHLORIDE 20 MEQ TABCR PO SCH (07:51)
[2019-01-23] MEDS: DOCUSATE SODIUM 100 MG CAP PO SCH (07:51)
[2019-01-23] MEDS: APIXABAN 5 MG TABLET PO SCH (07:51)
[2019-01-23] MEDS: MULTIVITAMIN TAB PO SCH (07:52)
[2019-01-23] MEDS: INSULIN GLARGINE SOLOSTAR 100 UNITS/ML 3 ML PEN SC SCH (08:01)
[2019-01-23] MEDS: INSULIN ASPART 100 UNITS/ML 3 ML PEN SC SCH ×2 (08:02→12:59)
[2019-01-23 08:09] LABS: BUN Creatinine Ratio 22.3 (10-20); Calcium 8.3 mg/dl (8.5-10.1); Creatinine Clr Calc Pharmacy 47.9 ml/min; Est GFR (African American) 62.7; Est GFR (Non-African American) 54.1; Potassium 3.9 mmol/L (3.5-5.1)
--- NOTE | 2019-01-23 08:20 | Orthopedic Progress Note ---
Date of Service January 23, 2019 Assessment & Plan (1) Degenerative joint disease of left knee: s/p L TKA POD#2 -Ancef x 24, then dc -DVT ppx: SCDs, TEDs, restart patients home eliquis -WBAT LLE -PT/OT -am labs hgb 10.9 -DC planning - HH services if PT goals met. POD#1 -Ancef x 24, then dc -DVT ppx: SCDs, TEDs, restart patients home eliquis -WBAT LLE -PT/OT -am labs hgb 11.3 -DC planning - HH services when dc'd. Subjective Post operative progress note Pt sitting at bedside. Comfortable, no acute issues overnight. She states that her pain is controlled currently. Denies SOB,CP,LH. Review of Systems Review of Systems: All systems reviewed & are unremarkable except as noted in HPI & below Constitutional: as per Subjective / HPI Physical Exam Physical Exam: LLE NVSI +EHL/FHL/TA/GS SILT grossly, +2 DP pulse, compartments soft NT, dressing cdi. Constitutional: WD/WN, vitals as above Results & Data Vital Signs (Past 12 Hours) Vital Signs Temp Pulse Pulse Resp BP Pulse Ox 01/23/19 07:12 46 L 18 96 01/23/19 06:46 37.0 C 63 17 118/61 93 01/23/19 00:12 37.1 C 67 18 114/53 L 97 01/22/19 20:27 36.9 C 74 16 109/66 94
[2019-01-23 13:57] VITALS: BP 102/60; PULSE 82; O2SAT 94
--- NOTE | 2019-01-25 11:15 | Discharge Summary ---
Date of Service January 25, 2019 Admission HPI Per Admitting Provider The patient is a 83 year old female who presents with complaints of severe left knee pain and DJD. The patient has failed outpatient conservative treatments to this point which included topica NSAIDs, IA corticosteroid and SAWYER injection, bracing, PT and a home walking/exercise program. The patient's pain and limited function have progressed to the point where they severely hinder their activities of daily living and they no longer tolerate exercise programs. They are requesting to proceed with total knee replacement surgery. Principal Diagnosis Left total knee replacement Discharge Exam LLE NVSI +EHL/FHL/TA/GS SILT grossly, +2 DP pulse, compartments soft NT, dressing cdi. Constitutional WD/WN, vitals as above Discharge Data Allergies Allergy/AdvReac Type Severity Reaction Status Date / Time succinylcholine Allergy Severe Seizure Verified 01/21/19 07:13 [From Anectine] Iodinated Contrast- Oral and Allergy Hives Verified 01/21/19 07:34 IV Dye azithromycin AdvReac Intermediate SORE MOUTH Verified 01/21/19 07:13 [From Zithromax Z-Florin] doxycycline AdvReac Mild Mouth got Verified 01/21/19 07:13 sore Consultations 01/21/19 12:18 Consult Case Management - Discharge Planning Routine Consult Hospitalist Routine Procedures Performed Operation Date: 01/21/19 09:15 Actual Procedures p Left Total Knee Arthroplasty(Left) - Usama Loaiza DO Ordered Studies 01/21/19 05:00 US - OR guided needle placemen Routine Hospital Course (1) Degenerative joint disease of left knee: The patient is a 83 -year-old female who presents with long standing history of severe left knee DJD and failed outpatient conservative treatments including NSAIDs, bracing, injections and home walking/exercise program. The patient's symptoms have progressed to the point where it has been difficult to perform even normal activities of daily living. I indicated the patient for a left total knee arthroplasty, the risks, benefits and complications of the procedure include but not limited to infection, bleeding, damage to bone, nerves, vessels, surrounding soft tissue, may develop blood clots, loss of function, leg length discrepancy, dislocation, failure of the components, loosening of the components, the need for additional surgery and . The patient wished to proceed with surgery at this time and informed consent was obtained. Hospital Course: On 01/21/19 the patient was taken to the operating room, adequate anesthesia administered and underwent a left total knee arthroplasty. The patient tolerated the procedure well and was taken to the PACU in stable condition. Post-operatively the patient was started on a DVT ppx medication and given appropriate IV antibiotics. Consults were placed to medical hospitalist, physical therapy, occupational therapy and case management. On POD#1, the patient did well overnight and their pain was well controlled. Labs were drawn and the Hgb was 11.3. The patient progressed well with PT. Dressings were changed at this time and the incision was clean, dry and intact. On POD#2, The patient continued to progress with PT, pain well controlled, dressing changed, incision CDI. Labs drawn, hgb 10.9. The patients hospital stay was relatively uneventful and they were deemed stable by the orthopedic team and consultants to be discharged home with HH on 01/23/19. Discharge Instructions: Upon discharge the patient may weight bear as tolerates through their operative extremity. They were instructed to keep the incision clean and dry at all times. The patient may shower but should not submerge the incision, avoid bathing, pools and hot tubes. The patient was given a script for pain medication and should take as instructed. The patient's home blood thinner, Eliquis was restarted and should take as directed. The patient was instructed to not drive or travel for long distances until cleared to do so. If the patient develops any symptoms of fevers, chills, nausea, vomiting, increased redness, swelling, pain or drainage from the surgical site, they should notify the office and/or proceed to the nearest emergency room. The patient should follow up in 10-14 days after surgery for their routine post-operative follow-up appointment and should call the office to confirm the date and time. s/p L TKA POD#2 -Ancef x 24, then dc -DVT ppx: SCDs, TEDs, restart patients home eliquis -WBAT LLE -PT/OT -am labs hgb 10.9 -DC planning - HH services if PT goals met. POD#1 -Ancef x 24, then dc -DVT ppx: SCDs, TEDs, restart patients home eliquis -WBAT LLE -PT/OT -am labs hgb 11.3 -DC planning - HH services when dc'd. Total Time Total Time Spent Total Time Spent (In Minutes): 45 minutes Total Time Includes: Examination of the Patient, Discharge Planning, Medication Reconciliation and Communication With Other Providers Discharge Plan Discharge Items Patient Disposition: Home - Home Health Services Reason For Visit: Unilateral Primary Osteoarthritis, Left Knee Discharge Diagnosis: Left total knee replacement Discharge Goals: Decrease discomfort, Improve function, Increase independence and Therapeutic intervention Activity: Per 'Additional Instructions' section Lifting: Wait until after follow-up appointment Bathing: Keep incision dry Bathing Comment: No bathing, pools or hot tubs Sexual Activity: Wait until after follow-up appointment Exercise/Sports: Wait until after follow-up appointment Driving/Machine Use Comment: No driving till cleared by your surgeon Weightbearing: Left weightbearing Non-emergency contact: Primary Care Provider and Surgeon Call non-emergency contact if: you have any medication questions, your symptoms worsen, your pain is not controlled, your pain is worsening, your pain is unusual for you, your pain is concerning for you, you have a fever, your tempe rature is above 101, your wound has increased redness, your wound has increased drainage and your wound pain has increased Follow-up/Referrals: Osmar Hallman, D.O. [Primary Care Provider] - Diet: Heart Healthy Addtl Provider Instructions: ACTIVITY RECOMMENDATIONS: SELF CARE INSTRUCTIONS AFTER TOTAL KNEE REPLACEMENT A. You may need to continue a physical therapy program after discharge from the hospital. There are several options available to you. Your doctor will assist you in selecting the best one for you. 1. An out-patient facility 2 to 3 times a week for therapy or home therapy. 2. Continue working on all exercises taught to you in the hospital. Your goals should be to increase bending of your knee to 90 degrees and beyond and to fully straighten your knee. B. You may progress at your own pace from walking with a walker or crutches to a cane; then to no assistive devices. C. Make walking a part of your daily routine. Be up as much as comfortable with rest periods throughout the day. Rest with leg elevation is very important. Use the ice wrap frequently for the first 3-4 weeks. D. There are no restrictions on activities. You may ride in a car, shop, participate in income tax manager and all social activities. E. Wear the long elastic stockings (SUNNI hose) 20 hours a day for 2 weeks after surgery. They can be removed several times a day for laundering and for a bath. F. You may shower, no tub baths until cleared by your doctor. SPECIAL CARE INSTRUCTIONS: VERY IMPORTANT TO READ AND REVIEW A. There are a few signs you need to watch for after you are home. Call [facility] if you notice any of the followin. Increased severe knee pain. Some pain is expected especially when you exercise. 2. Increased swelling in your leg or knee; pain or swelling of the calf muscle in either lower leg. 3. Any fluid drainage from the incision. 4. Shortness of breath or chest pain. B. Please call [facility] at if you have any concerns or questions about your operation or recovery. The doctor or his nurse will return your call promptly. C. You must take antibiotics before dental work, bladder, bowel or other surgery. Your doctor will provide you with a permanent care to carry describing this precaution. IMPORTANT: * REMEMBER TO TAKE YOUR HOME MEDICATION ELIQUIS, TWICE DAILY FOR 4 WEEKS UNLESS OTHERWISE DIRECTED. THIS IS YOUR BLOOD THINNER. * HIGH RISK PATIENTS MAY BE PRESCRIBED A STRONGER BLOOD THINNER. THIS WILL BE PROVIDED AT DISCHARGE. * CALL IF INCREASED PAIN, REDNESS, DRAINAGE OR FEVER GREATER THAT 101. * WEAR SUNNI HOSE 20 HOURS PER DAY FOR 2 WEEKS. * DERMABOND Prineo- This is a mesh tape dressing that is covered with glue. It should remain in place until the incision is properly healed, usually 10-14 days. This dressing is designed to naturally slough off. You may trim the excess mesh tape as it peels off. Incision may be briefly wet in a shower. Dry immediately by blotting with a clean, dry towel. Do not bath or swim until instructed by your doctor. Do not scratch, rub, or pick at the dressing. Do not apply any topical ointments or lotions until dressing is completely removed and/or instructed by your doctor. There may be a small piece of suture material at one end of your incision. Do n ot pull or trim this. If it is bothersome or catching on clothing, you may cover it with a band-aid. . FOLLOW UP VISIT: If appointment is not already scheduled: Please call [facility] to make a follow-up appointment for 2 weeks after your surgery at . Prescriptions: New acetaminophen [Tylenol Extra Strength] 500 mg Tablet 1,000 mg PO Q8 Qty: 90 RF: 0 oxycodone 5 mg Tablet 5 mg PO Q4H MDD 6 tabs PRN (Reason: pain) Qty: 30 RF: 0 sennosides [Senokot] 8.6 mg Tablet 17.2 mg PO HS PRN (Reason: constipation) Qty: 28 RF: 0 Continued albuterol sulfate 90 mcg/actuation Hfa Aerosol Inhaler 1 puff INHALATION Q6H PRN (Reason: sob) RF: 0 carvedilol 25 mg Tablet 25 mg PO BID RF: 0 atorvastatin 20 mg Tablet 20 mg PO QAM RF: 0 amlodipine 5 mg Tablet 5 mg PO BID RF: 0 potassium chloride [Klor-Con M20] 20 mEq Tablet,Er Particles/Crystals 40 meq PO BID RF: 0 lisinopril 10 mg Tablet 20 mg PO BID RF: 0 bumetanide 1 mg Tablet 1 mg PO BID RF: 0 duloxetine 30 mg Capsule,Delayed Release(Dr/Ec) 30 mg PO HS RF: 0 Eliquis 5 mg Tablet 5 mg PO BID RF: 0 Jardiance 10 mg Tablet 10 mg PO QAM RF: 0 Ocuvite Adult 50 Plus 250-5-1 mg Capsule 1 cap PO QAM RF: 0 lorazepam 0.5 mg Tablet 0.5 mg PO HS RF: 0 Travatan Z 0.004 % Drops 1 drp OPHTHALMIC (EYE) PM RF: 0 ipratropium bromide 0.02 % Solution 0.5 mg INHALATION BID RF: 0 Oxygen Home Liters Per Minute RF: 0 Stand-Alone Forms: [facility] [employer], Opioid Pain Management Kr[employer]/Other Patient Handouts: DVT Prevent Discharge Orders: Discharge Order (Routine); Ordered 01/23/19 Ordered By: Tarik Suarez Admission Data Admit Date/Time: 01/21/19 11:27 Attending Provider: Usama Loaiza Admit Provider: Usama Loaiza Primary Care Provider: Osmar Hallman Other Providers: Elias Lynne Service: Surgical Services Other Interventions: Discharge Summary Assessment (RN) Last Done: 01/23/19 13:47 DC Date/Time DO NOT enter until pt leaves facility: 01/23/19 15:15
== END 2019-01-23 15:15 | disposition home health service (06) | DRG 470 ==
LOC: ASU 06:47 → 3E 11:27